=== PATIENT | male | born 1950 | race Caucasian/White ===

== ENCOUNTER 2017-01-25 16:46 | Emergency (ER) | payer MEDICARE ==
--- NOTE | 2017-01-26 12:40 | ER ---
ADMIT: 01/25/2017 RM/LOC: ER [facility] MR#: [id number] [address] [id number] HUA ADAMS [address] [place] [id number] Emergency Room Report SEX: M AGE: 66 : 1950 DATE: 01/25/2017 ADDENDUM: A 66-year-old white male, evidently [facility]. When he came out, he said, he had a little left arm pain. They sent him over here because they were concerned with his EKG. EKG is negative. Chest x-ray negative. CBC, chemistry, troponin all negative. In fact, he had this same type of thing about a year ago, so I think this is all chest wall pain. He should follow up as needed. CONDITION ON DISCHARGE: Good. Jeremiah Guerin MD/ linda JOB #: [id number] CC: Jeremiah Guerin MD, Attending Physician [facility] Physician, Family Physician
== END 2017-01-25 19:10 | disposition home or self-care (01) ==
LOC: ER 16:46
DX: R07.89 Other chest pain (principal); E11.9 Type 2 diabetes mellitus without complications; I10 Essential (primary) hypertension; E03.9 Hypothyroidism, unspecified; Z79.82 Long term (current) use of aspirin; Z79.899 Other long term (current) drug therapy